=== PATIENT | female | born 1990 | race African-American/Black ===

== ENCOUNTER 2019-02-24 20:41 | Inpatient (IN) | payer OTHER ==
[2019-02-25] MEDS ORDERED: BRETHINE SUB-Q PRN
[2019-02-25] MEDS ORDERED: XYLOCAINE 2% INFILTRATI ONE
[2019-02-25] MEDS ORDERED: PITOCin/NS 20 UNIT/1000ML DRIP 20 UNITS/1,000 ML BAG IV SCH
--- NOTE | 2019-02-25 00:09 | History and Physical Report ---
History of Present Illness Date of examination: 02/25/19 Date of admission: 02/24/19 21:13 Chief complaint: 28 year old presents for scheduled induction of labor. History of present illness: 28 year old presents for scheduled induction of labor. No records are available in L&D and patient does not have records with her. Patient states her EDC is 02/18/2019. Patient states she has received care at [facility]; records have been requested. Patient states she has not had any complications with her ; patient denies health problems. She states she is taking PNV daily. No labs available; these have been requested. Past History Past Medical History: no pertinent history Past Surgical History: no surgical history [facility] History: denies: abnormal PAP smear, chlamydia, gonorrhea, hepatitis B, hepatitis C, herpes, HIV, syphilis, trichomonas Family/Genetic History: hypertension Social history: , lives with family, full code. denies: smoking, alcohol abuse, prescription drug abuse, IV drug use - Obstetrical History Expected Date of Delivery: 02/18/19 Actual Gestation: 41 Week(s) 0 Day(s) : 1 Para: 0 Hx # Term Pregnancies: 1 Number of Pregnancies: 0 Spontaneous Abortions: 0 Induced : 0 Number of Living Children: 0 Medications and Allergies Active Meds: Active Medications Ephedrine Sulfate (Ephedrine Sulfate) 10 mg IV Q2M PRN PRN Reason: Hypotension Ampicillin Sodium (Polycillin/Ns 2 Gm/100 Ml) 2 gm in 100 mls @ 100 mls/hr IV ONCE ONE; Protocol Stop: 02/25/19 00:59 Lactated Ringer's (Lactated Ringers) 1,000 mls @ 125 mls/hr IV DIRECT PORTIA Oxytocin/Sodium Chloride (Pitocin/Ns 20 Unit/1000ml Drip) 20 units in 1,000 mls @ 125 mls/hr IV DIRECT PORTIA Ampicillin Sodium (Ampicillin/Ns 1 Gm/50 Ml) 1 gm in 50 mls @ 100 mls/hr IV Q4HR PORTIA; Protocol Lidocaine (Xylocaine 2%) 20 ml INFILTRATI ONCE ONE Stop: 02/25/19 00:01 Terbutaline Sulfate (Brethine) 0.25 mg SUB-Q ONCE PRN PRN Reason: Hyperstimulation/Hypertonicity - Vital Signs Vital signs: Vital Signs Pulse BP 99 H 120/73 02/24/19 21:48 02/24/19 21:48 Temp Pulse Resp BP Pulse Ox 99 H 120/73 02/24/19 21:48 02/24/19 21:48 - Physical Exam Abdomen: Positive: normal appearance, soft. Negative: distention, tenderness, guarding, rigidity Genitourinary (Female): Positive: normal external genitalia, normal perenium. Negative: perineal/vulvar lesions Vagina: Positive: normal moisture Uterus: Positive: enlarged. Negative: tender Anus/Rectum: Positive: normal perianal skin Extremities: Positive: normal. Negative: tenderness, edema - Obstetrical FHR: category 1 Uterine Contraction Monitor Mode: External Cervical Dilatation: 0 Cervical Effacement Percentage: 30 station: -1 Uterine Contraction Frequency (min): Irregular Uterine Contraction Pattern: Irregular Uterine Contraction Intensity: Mild Results All other labs normal. Assessment and Plan A: at 41 weeks gestation. Reactive NST; category 1 heart rate tracing. Scheduled induction of labor; no labs or records available. GBS unknown. P: Admit. records have been requested. Continuous EFM. Will await records and labs; when we will receive these, will proceed with IOL if indicated. Discussed this plan with patient and family and they state they are in agreement.
[2019-02-25] MEDS ORDERED: AMPICILLIN/NS 2 GM/100 ML 2 GM/100 ML BAG IV ONE (02:00)
[2019-02-25 03:11] LABS: Hematocrit 30.8 % (30.3-42.9); Hemoglobin 10.2 gm/dl (10.1-14.3); Mean Corpuscular HGB Conc 33 % (30-34); Mean Corpuscular Volume 73 fl (79-97); Platelet Count 128 K/mm3 (140-440)
[2019-02-25 03:20] LABS: Red Cell Distribution Width 20.5 % (13.2-15.2)
[2019-02-25] MEDS ORDERED: AMPICILLIN/NS 1 GM/50 ML 1 GM/50 ML BAG IV SCH (06:00)
--- NOTE | 2019-02-25 09:22 | Event Note ---
Date: 02/25/19 Spoke to [facility] office and they state they are faxing records to Labor and Delivery.
[2019-02-25] MEDS ORDERED: CERVIDIL VG ONE (09:48)
--- NOTE | 2019-02-25 09:55 | Progress Note ---
Assessment and Plan A: at 41 weeks gestation. Mild anemia secondary to . P: Cervidil for cervical ripening. Discussed with patient risks and benefits of Cervidil for cervical ripening. Patient consented to Cervidil cervical ripening. Will supplement with iron after delivery. Subjective - Subjective Date of service: 02/25/19 Principal diagnosis: at 41 weeks gestation Interval history: 28 year old here for induction of labor. We now have records; records reviewed. significant for the following: Vitamin D deficiency (supplemented with Vitamin D), anemia (supplemented with iron), vegetarian patient. labs are as follows: O+, antibody screen negative, pap smear negative, rubella immune, RPR nonreactive, hepatitis B surface antigen negative, hemoglobin electrophoresis AA, GC/CT negative, varicella immune, hepatitis C antibody negative, HIV negative, quad screen negative, diabetes screen 101, GBS negative, trichomonas negative. EDC of 02/18/19 based on patient's LMP and confirmed by first trimester ultrasound. Patient reports: movement normal, no new complaints, no loss of fluid, no vaginal bleeding, no contractions Objective - Exam Abdomen: Present: normal appearance, soft. Absent: distention, tenderness, guarding, rigidity Uterus: Present: fundal height above umbilicus FHR: category 1 Uterine Contraction Monitor Mode: External Uterine Contraction Pattern: Absent - Labs Labs: Abnormal Labs 02/25/19 02:42 MCV 73 L MCH 24 L RDW 20.5 H Plt Count 128 L Laboratory Results - last 24 hr 02/25/19 02/25/19 02:42 02:42 WBC 9.5 RBC 4.20 Hgb 10.2 Hct 30.8 MCV 73 L MCH 24 L MCHC 33 RDW 20.5 H Plt Count 128 L Blood Type O POSITIVE Antibody Screen Negative
[2019-02-25 10:28] LABS: Alanine Aminotransferase 7 units/L (7-56); Albumin 3.4 g/dL (3.9-5); BUN/Creatinine Ratio 13; Blood Urea Nitrogen 5 mg/dL (7-17); Hemolysis Index 45
[2019-02-25] MEDS ORDERED: SUBLIMAZE IV ONE (15:00)
[2019-02-25] MEDS: LACTATED RINGERS 1,000 ML IV SCH ×2 (15:31→23:08)
--- NOTE | 2019-02-25 18:06 | Event Note ---
Date: 02/25/19 Cervidil removed at 18:00 due to frequent contractions. Category 1 heart rate tracing. Uterus palpates soft between contractions.
[2019-02-25] MEDS ORDERED: TYLENOL PO ONE (18:07)
[2019-02-25] MEDS ORDERED: SUBLIMAZE ONE (20:49)
[2019-02-25] MEDS ORDERED: SUBLIMAZE IV PRN (20:52)
--- NOTE | 2019-02-25 20:52 | Event Note ---
Date: 02/25/19 Patient reports leaking of water at 20:40. Moderate amount of clear fluid noted at introitus and on pad. SVE 1/90/-1 to 0. Patient requests pain medication. Order for Fentanyl put in. Category 1 heart rate tracing.
[2019-02-25] MEDS ORDERED: PITOCin/NS 30 UNIT/500ML 30 UNITS/500 ML BAG IV SCH (21:00)
--- NOTE | 2019-02-25 21:49 | Event Note ---
Date: 02/25/19 Patient received Fentanyl for pain with contractions. Maternal heart rate now 130s to 150s. Patient is asymptomatic; she denies dizziness, chest pain, shortness of breath, palpitations, or any other symptoms. Amniotic fluid remains clear and without odor and heart rate tracing is reassuring. Uterus is nontender to palpation and soft between contractions. Patient's temperature is 98.9. EKG ordered. UA and urine culture ordered. Ampicillin and Gentamicin ordered. Consulted with Dr. Gallagher re: patient and maternal tachycardia and interventions taken; no new orders received.
[2019-02-25] MEDS ORDERED: GENTAMICIN/NS 80 MG/100 ML 100 ML IV SCH (22:00)
--- NOTE | 2019-02-25 22:16 | Event Note ---
Date: 02/25/19 Pitocin has been ordered for augmentation of labor. Have discussed risks and benefits of Pitocin with patient. Patient consented to Pitocin augmentation of labor.
[2019-02-26] MEDS ORDERED: AMPICILLIN/NS 2 GM/100 ML 2 GM/100 ML BAG IV SCH
[2019-02-26] MEDS ORDERED: NARCAN 2 MG/2 ML IV PRN (01:13)
--- NOTE | 2019-02-26 01:15 | Anesthesia Day of Surgery ---
Anesthesia Day of Surgery - Day of Surgery Patient Examined: Yes Patient H&P Reviewed: Yes Patient is NPO: Yes Beta Blockers: No Cardiac Clearance: No Pulmonary Clearance: No Gm's Test: N/A
--- NOTE | 2019-02-26 01:15 | Anesthesia Consultation ---
Anesthesia Consult and Med Hx - Airway Anesthetic Teeth Evaluation: Good, Partials ROM Head & Neck: Adequate Mental/Hyoid Distance: Adequate Mallampati Class: Class I Intubation Access Assessment: Good - Pulmonary Exam CTA: Yes - Cardiac Exam Cardiac Exam: RRR - Pre-Operative Health Status ASA Pre-Surgery Classification: ASA2 Proposed Anesthetic Plan: Epidural - Pulmonary Hx Asthma: No COPD: No Hx Pneumonia: No - Cardiovascular System Hx Hypertension: No - Central Nervous System Hx Seizures: No Hx Psychiatric Problems: No - Endocrine Hx Renal Disease: No Hx End Stage Renal Disease: No Hx Hypothyroidism: No Hx Hyperthyroidism: No - Hematic Hx Anemia: No Hx Sickle Cell Disease: No - Other Systems Hx Alcohol Use: No
[2019-02-26] MEDS ORDERED: MARCAINE 0.25% INFILTRATI ONE (01:18)
[2019-02-26] MEDS: LACTATED RINGERS 1,000 ML IV SCH (01:52)
--- NOTE | 2019-02-26 01:53 | Event Note ---
Date: 02/26/19 Patient has received epidural and is comfortable. Category 1 heart rate tracing. Labor is being augmented with Pitocin. Maternal tachycardia persists. EKG shows sinus tachycardia. Patient is receiving Ampicillin and Gentamicin. Consulted with Dr. Gallagher re: interventions done and continued maternal tachycardia. No new orders received. Will observe closely.
[2019-02-26] MEDS ORDERED: fentaNYL-BUPIV 2 MCG/ML-0.125% 200 MCG/100 ML BAG EPIDURAL SCH (02:00)
[2019-02-26 05:45] LABS: Bacteria,Urine 1+ /HPF (Negative); Bilirubin,Urine NEG (Negative); Blood,Urine NEG (Negative); Color,Urine Yellow (Yellow); Mucus,Urine FEW /HPF; Protein,Urine <15 mg/dL mg/dL (Negative); Urobilinogen,Urine < 2.0 mg/dL (<2.0)
[2019-02-26] MEDS ORDERED: CYTOTEC ONE (05:54)
[2019-02-26] MEDS ORDERED: CYTOTEC PR ONE (06:13)
[2019-02-26] MEDS ORDERED: NORCO 5/325 PO PRN (06:37)
[2019-02-26] MEDS ORDERED: MILK OF MAGNESIA PO PRN (06:37)
[2019-02-26] MEDS ORDERED: LANSINOH TP PRN (06:37)
--- NOTE | 2019-02-26 06:49 | Procedure Note ---
OB Delivery Note - Delivery Date of Delivery: 02/26/19 Surgeon: [facility] DIANE Estimated blood loss: other (400 cc) - Vaginal Delivery presentation: vertex Delivery position: OA Intrapartum events: other(please specify) (maternal tachycardia) Delivery augmentation: pitocin Delivery monitor: external FHT, external uterine Route of delivery: Delivery placenta: spontaneous Delivery cord: 3 umbilical vessels Episiotomy: midline, other (3rd degree extension of midline episiotomy) Delivery repair: vicryl (repaired by Dr. Marcos Gallagher) Anesthesia: epidural Delivery comments: Spontaneous vaginal delivery at 05:46 of liveborn female over 2nd degree midline episiotomy with 3rd degree extension. Weight 7 lb. 12 oz. Apgars 8/9. Epidural anesthesia. Baby bulb suctioned, dried, and stimulated. Baby placed skin to skin with patient. Spontaneous cry and respirations. 3 vessel cord double clamped and cut. Spontaneous delivery of intact placenta and membranes. EBL 400 cc. Pitocin to IV fluids after delivery of placenta. Cytotec 800 micrograms rectally. Fundus firm and midline. Vaginal sweep negative. MLE with 3rd degree extension repaired in normal fashion by Dr. Marcos Gallagher. Mother and baby stable in birthing room.
[2019-02-26] MEDS ORDERED: SODIUM CHLORIDE FLUSH SYRINGE 10 ML IV PRN (07:00)
[2019-02-26] MEDS ORDERED: XYLOCAINE 2% INFILTRATI ONE (07:04)
[2019-02-26] MEDS ORDERED: STADOL ONE (07:08)
[2019-02-26] MEDS ORDERED: STADOL IV PRN (07:10)
[2019-02-26 09:53] LABS: Hematocrit 28.6 % (30.3-42.9); Hemoglobin 9.5 gm/dl (10.1-14.3)
[2019-02-26] MEDS: COLACE PO SCH ×2 (10:00→22:01)
[2019-02-26] MEDS: TUCKS PAD TP PRN (11:48)
[2019-02-26] MEDS: IBUPROFEN PO SCH ×3 (11:48→23:28)
[2019-02-26 20:42] LABS: Hematocrit 24.9 % (30.3-42.9); Hemoglobin 8.3 gm/dl (10.1-14.3)
[2019-02-27] MEDS: IBUPROFEN PO SCH ×3 (05:39→17:54)
[2019-02-27] MEDS ORDERED: FEOSOL PO SCH (10:00)
[2019-02-27] MEDS: FEOSOL PO SCH ×2 (11:07→22:22)
[2019-02-27] MEDS: COLACE PO SCH ×2 (11:07→22:22)
[2019-02-27] MEDS ORDERED: DERMOPLAST TP PRN (11:35)
--- NOTE | 2019-02-27 11:41 | Progress Note ---
Assessment and Plan - Patient Problems (1) Status post normal vaginal delivery Current Visit: Yes Status: Acute Plan to address problem: PPD 2 - stable Continue routine PP orders Discharge to home 02/28/19 Follow up at [facility] in 6 weeks for exam (2) Anemia due to blood loss, acute Current Visit: Yes Status: Acute Plan to address problem: Asymptomatic Continue iron therapy (initially Ferrous sulfate 325mg PO qd; increased to 325mg PO BID) (3) Obstetric vaginal laceration with third degree perineal laceration Current Visit: Yes Status: Acute Plan to address problem: Well-approximated Dermoplast ordered prn Subjective - Subjective Date of service: 02/27/19 Principal diagnosis: PPD #2; s/p , Third Degree Laceration Interval history: see H&P, Event Notes, OB Progress Notes and OB Delivery Procedure Note Patient reports: appetite normal, voiding normally, pain well controlled, ambulating normally, no dizzy ambulation, no bowel movement : doing well, other (breast and bottle feeding) Objective - Vital Signs Latest vital signs: Vital Signs Temp Pulse Resp BP BP Pulse Ox 02/27/19 08:40 97.3 F L 98 H 16 104/62 97 02/27/19 00:06 98.7 F 156 H 16 112/80 96 02/26/19 16:29 97.7 F 102 H 18 102/65 02/26/19 13:29 98.5 F 91 H 18 108/70 Intake and Output 02/26/19 02/27/19 02/27/19 23:59 07:59 15:59 Intake Total 660 300 Output Total 900 Balance -240 300 Intake: Oral 360 Intake, Free Water 300 300 Output: Urine 900 Void 900 Other: Total, Intake Amount 360 Total, Output Amount 300 - Exam Cardiovascular: Present: Regular rate Lungs: Present: Clear to auscultation Abdomen: Present: normal appearance, soft Vulva: both: normal Uterus: Present: normal, firm, fundal height below umbilicus Extremities: Present: edema (BLE, trace) Comments: small lochia - Labs Labs: Abnormal lab results 02/26/19 Range/Units 20:24 Hgb 8.3 L (10.1-14.3) gm/dl Hct 24.9 L (30.3-42.9) %
--- NOTE | 2019-02-27 11:48 | Discharge Summary ---
<TERRY MOREL - Last Filed: 02/27/19 11:43> Providers - Providers Date of Admission: 02/24/19 21:13 Date of discharge: 02/28/19 Attending physician: MARIANNE RODGERS Primary care physician: MARIANNE RODGERS Hospitalization Reason for admission: induction of labor (postdates), IUP at term Delivery: Episiotomy: midline Laceration: 3rd degree Other procedures: none Discharge diagnosis: IUP at term delivered [place] baby: female Hospital course: Uncomplicated Condition at discharge: Stable Disposition: DC-01 TO HOME OR SELFCARE - Discharge Diagnoses (1) Status post normal vaginal delivery Status: Acute (2) Anemia due to blood loss, acute Status: Acute Comment: Asymptomatic Continue iron therapy (3) Obstetric vaginal laceration with third degree perineal laceration Status: Acute Comment: Continue Dermoplast and Tuck pads prn Sitz baths encouraged Plan - Discharge Medications Prescriptions: Ferrous Sulfate [Feosol 325 MG tab] 325 mg PO BID #30 tablet - Provider Discharge Summary Activity: routine, no sex for 6 weeks, no heavy lifting 4 weeks, no strenuous exercise Diet: routine Instructions: routine Additional instructions: [] Smoking cessation referral if applicable(refer to patient education folder for contact #) [] Refer to [facility]'s [facility] Booklet Call your doctor immediately for: * Fever > 100.5 * Heavy vaginal bleeding ( >1 pad per hour) * Severe persistent headache * Shortness of breath * Reddened, hot, painful area to leg or breast * Drainage or odor from incision. * Keep incision clean and dry at all times and follow doctor's instructions regarding bathing/showering - Follow up plan Follow up: MARIANNE RODGERS MD [Primary Care Provider] - 6 Weeks (Follow up at [facility] in 6 weeks for exam) Forms: [facility] Discharge Summary, [place] DC Identification Form, Discharge Signature Page <MARIANNE RODGERS - Last Filed: 02/28/19 09:40> Providers - Providers Date of Admission: 02/24/19 21:13 Attending physician: MARIANNE RODGERS Primary care physician: MARIANNE RODGERS Plan - Provider Discharge Summary Additional instructions: [] Smoking cessation referral if applicable(refer to patient education folder for contact #) [] Refer to [facility] Booklet Call your doctor immediately for: * Fever > 100.5 * Heavy vaginal bleeding ( >1 pad per hour) * Severe persistent headache * Shortness of breath * Reddened, hot, painful area to leg or breast * Drainage or odor from incision. * Keep incision clean and dry at all times and follow doctor's instructions regarding bathing/showering - Addendum Date: 02/28/19 Note: Maternal Tachycardia I resumed call 02/28/18 and following chart review I noted maternal heart rate of 150s. Last vitals listed 02/27 HR 98-114. EKG done revealing sinus tachycardia 02/28 vitals HR 124 Plan: 1. Order CT angiogram of chest to evaluate for pulmonary embolism.
--- NOTE | 2019-02-28 09:41 | Event Note ---
Maternal Tachycardia I resumed call 02/28/18 and following chart review I noted maternal heart rate of 150s. Last vitals listed 02/27 HR 98-114. EKG done revealing sinus tachycardia 02/28 vitals HR 124 Plan: 1. Order CT angiogram of chest to evaluate for pulmonary embolism.
--- NOTE | 2019-02-28 12:32 | Cat Scan Report ---
CTA CHEST: HISTORY: Evaluate for pulmonary embolus. COMPARISON: none. TECHNIQUE: Helical CT in 1.25mm intervals following IV contrast. Pulmonary embolus protocol. Sagittal and coronal reformatted images. Rotational MIP images. FINDINGS: Contrast bolus is satisfactory. No pulmonary embolus is identified. Thyroid gland: Normal. Tracheobronchial tree: Normal. Esophagus: Normal. Heart: Normal. Pericardium: Normal. Mediastinum: Normal. Lung Vargas: normal. Pleural Spaces: Normal. Musculoskeletal: Normal. IMPRESSION: No evidence for pulmonary embolus. Unremarkable CT chest with contrast.
[2019-02-28] MEDS: TUCKS PAD TP PRN (12:56)
[2019-02-28] MEDS: COLACE PO SCH ×2 (12:58→21:04)
[2019-02-28] MEDS: IBUPROFEN PO SCH (20:45)
[2019-02-28] MEDS: FEOSOL PO SCH (21:06)
[2019-02-28 21:45] VITALS: BP 112/78
== END 2019-02-28 22:20 | disposition home or self-care (01) | DRG 768 ==
LOC: TRG 20:41 → LD 21:13 → OB 02-26 09:09
PROVIDERS: ADMIT Obstetrics & Gynecology; ATTEND Obstetrics & Gynecology
PROC: 3E0P7VZ Introduction of Hormone into Female Reproductive, Via Natural or Artificial Opening (ICD-10-PCS; 2019-02-25)
PROC: 10E0XZZ Delivery of Products of Conception, External Approach (ICD-10-PCS; principal; 2019-02-26)
PROC: 0DQR0ZZ Repair Anal Sphincter, Open Approach (ICD-10-PCS; 2019-02-26)
PROC: 0W8NXZZ Division of Female Perineum, External Approach (ICD-10-PCS; 2019-02-26)
PROC: 3E0R3BZ Introduction of Anesthetic Agent into Spinal Canal, Percutaneous Approach (ICD-10-PCS; 2019-02-26)
PROC: 00HU33Z Insertion of Infusion Device into Spinal Canal, Percutaneous Approach (ICD-10-PCS; 2019-02-26)
DX: O99.02 Anemia complicating childbirth (principal); Z37.0 Single live birth; D62 Acute posthemorrhagic anemia; O70.20 Third degree perineal laceration during delivery, unspecified; Z3A.41 41 weeks gestation of pregnancy; Z82.49 Family history of ischemic heart disease and other diseases of the circulatory system; O99.89 Other specified diseases and conditions complicating pregnancy, childbirth and the puerperium; R00.0 Tachycardia, unspecified
CPT/HCPCS: 36415; 59200; 71275; 80053; 81001; 84439; 84443; 85014; 85018; 85027; 86592; 86850; 86900; 86901; 87086; 93005; 93010; G0378; J0595; J1580; J2590; J3010; J7120; Q9967